=== PATIENT | male | born 1945 | race Caucasian/White ===

== ENCOUNTER 2018-02-04 12:56 | Emergency (ER) | payer MEDICARE, BC ==
[2018-02-04] MEDS: LIDOCAINE 1% MDV 20ML VIAL IM (16:20)
[2018-02-04] MEDS: ADACEL/BOOSTRIX VACCINE (DIPHTH/PERTUSS/ACELL/TETANUS)0.5ML SYR (90715) IM (16:21)
[2018-02-04] MEDS: cefTRIAXone SOD 1 GM in D5W MINI-BAG PLUS 50 ML IV (16:21)
== END 2018-02-04 18:00 | disposition home or self-care (01) ==
LOC: M ED 12:56
DX: S62.525B Nondisplaced fracture of distal phalanx of left thumb, initial encounter for open fracture (principal); W31.2XXA Contact with powered woodworking and forming machines, initial encounter; Y92.098 Other place in other non-institutional residence as the place of occurrence of the external cause; I10 Essential (primary) hypertension; E78.00 Pure hypercholesterolemia, unspecified; Z79.899 Other long term (current) drug therapy; Z79.82 Long term (current) use of aspirin
CPT/HCPCS: 90715

== ENCOUNTER → 2021-09-20 | Outpatient (REF) | payer MEDICARE ==
[~2021-09-20] MED LIST: ASPI81TA86 PO; KEFL500C17 PO; LOSA100T45; SIMV40TA20; VITA2000 PO; VITA500064 PO
[2021-09-20 18:16] LABS: VITAMIN B12 LEVEL > 2000 PG/ML (247-911)
== END ==
LOC: M LAB REF 16:15
PROVIDERS: ATTEND Nurse Practitioner Adult Health
DX: R41.3 Other amnesia (principal)

== ENCOUNTER → 2021-09-26 | Outpatient (CLI) | payer MEDICARE | LOC: M RAD 10:43 | PROVIDERS: ATTEND Nurse Practitioner Adult Health | DX: R59.1 Generalized enlarged lymph nodes (principal); M19.011 Primary osteoarthritis, right shoulder ==

== ENCOUNTER → 2021-09-26 | Outpatient (CLI) | payer MEDICARE | LOC: M WUC 12:22 | PROVIDERS: ATTEND Nurse Practitioner Adult Health | DX: M19.011 Primary osteoarthritis, right shoulder (principal) ==

== ENCOUNTER → 2021-10-19 | Outpatient (CLI) | payer MEDICARE ==
[~2021-10-19] MED LIST changes: +BIMA01SOL OU; +DULO30CA9 PO; +ELIQ5TAB PO; +HYDR12CA PO; +ICAPTAB PO; +LIDOCAINE 1% MDV 20ML VIAL As Ordered ONE; -LOSA100T45; +LOSA100T45 PO; +ROSU20TA5 PO; +VITA400T26 PO; +VITACAP31 PO; +[UNRECOGNIZED DRUG - OTHER] TOP
== END ==
LOC: M IRPRO 11:57
PROVIDERS: ATTEND Nurse Practitioner Adult Health
DX: L03.121 Acute lymphangitis of right axilla (principal)

== ENCOUNTER → 2022-10-18 | Outpatient (REF) | payer MEDICARE ==
[~2022-10-18] MED LIST changes: -LIDOCAINE 1% MDV 20ML VIAL As Ordered ONE; -LOSA100T45 PO; +LOSA100T46 PO; -ROSU20TA5 PO; +ROSU20TA61 PO; -VITA500064 PO; +VITA500065 PO
== END ==
LOC: M LAB REF 09:43
PROVIDERS: ATTEND Student in an Organized Health Care Education/Training Program
DX: R30.0 Dysuria (principal)

== ENCOUNTER → 2023-09-17 | Outpatient (CLI) | payer MEDICARE | LOC: M WUC 11:34 | PROVIDERS: ATTEND Nurse Practitioner Family | DX: R05.9 Cough, unspecified (principal); J06.9 Acute upper respiratory infection, unspecified ==

== ENCOUNTER 2023-09-21 12:45 | Emergency (ER) | payer MEDICARE ==
[~2023-09-21] VITALS: Ht 182.9 cm; Wt 111.8 kg
[2023-09-21] MEDS ORDERED: TAMS1CAP17 PO (12:58)
[2023-09-21] MEDS ORDERED: METO1TAB87 (12:58)
[2023-09-21 13:20] LABS: BASO % 0.2 % (0.0-1.0); EOS # 0.1 10^3/uL (0.0-0.5); EOS % 1.6 % (0.0-3.0); HEMATOCRIT 39.2 % (42.0-52.0); HEMOGLOBIN 13.5 g/dl (13.5-17.5); LYMPH # 1.7 10^3/uL (1.5-5.0); LYMPH % 20.7 % (24.0-44.0); MEAN CORPUSCULAR HEMOGLOBIN 32.8 pg (27.0-33.0); MEAN CORPUSCULAR HGB CONC 34.4 g/dl (32.0-36.5); MEAN CORPUSCULAR VOLUME 95.4 fl (80.0-96.0); MONO % 12.2 % (2.0-8.0); NEUTROPHILS # 5.4 10^3/uL (1.5-8.5); NEUTROPHILS % 65.1 % (36.0-66.0); PLATELET COUNT, AUTOMATED 231 10^3/uL (150-450); RED BLOOD COUNT 4.11 10^6/uL (4.30-6.10); WHITE BLOOD COUNT 8.4 10^3/uL (4.0-10.0)
[2023-09-21] MEDS: NS 1,000 ML IV SCH (13:40)
[2023-09-21 13:42] LABS: INR 1.25; PARTIAL THROMBOPLASTIN TIME 32.6 SECONDS (24.8-34.2); PROTHROMBIN TIME 15.3 SECONDS (12.5-14.5)
[2023-09-21 13:49] LABS: CK-MB VALUE MASS 3.8 NG/ML (<3.6)
[2023-09-21 13:50] LABS: C REACTIVE PROTEIN QUANTITATIV < 0.40 MG/DL (<1.0)
[2023-09-21 13:52] LABS: ALBUMIN 3.3 G/DL (3.2-5.2); ALKALINE PHOSPHATASE 61 U/L (46-116); ALT/SGPT 37 U/L (7.0-40); AST/SGOT 37 U/L (<34); BILIRUBIN,DIRECT 0.2 MG/DL (<0.4); BILIRUBIN,TOTAL 0.6 MG/DL (0.3-1.2); BLOOD UREA NITROGEN 28 MG/DL (9-23); CALCIUM LEVEL 8.6 MG/DL (8.3-10.6); CARBON DIOXIDE LEVEL 33 MMOL/L (20-31); CHLORIDE LEVEL 106 MMOL/L (98-107); CREATININE FOR GFR 0.94 MG/DL (0.70-1.30); GLOMERULAR FILTRATION RATE > 60.0 (>42); GLUCOSE, FASTING 134 MG/DL (74-106); POTASSIUM SERUM 3.6 MMOL/L (3.5-5.1); SODIUM LEVEL 143 MMOL/L (136-145); TOTAL PROTEIN 6.2 G/DL (5.7-8.2)
[2023-09-21 13:53] LABS: FREE T4 1.07 NG/DL (0.89-1.76)
[2023-09-21 13:54] LABS: THYROID STIMULATING HORMONE 0.767 uIU/ML (0.55-4.78)
[2023-09-21 13:58] LABS: PROCALCITONIN 0.04 ng/ml
[2023-09-21 14:03] LABS: CPK CREATINE PHOSPHOKINASE 478 U/L (46-171); MB/CK RELATIVE INDEX 0.79 (< OR =4)
[2023-09-21 14:53] LABS: CK-MB VALUE MASS 4.4 NG/ML (<3.6)
[2023-09-21 14:55] LABS: MB/CK RELATIVE INDEX 1.04 (< OR =4)
[2023-09-21 15:14] VITALS: BP 154/68; TEMP 98.1; O2SAT 98
== END 2023-09-21 15:18 | disposition short-term general hospital (02) ==
LOC: EDBD 12:45 → M ED 12:45
DX: I44.39 Other atrioventricular block (principal); I48.91 Unspecified atrial fibrillation; F10.10 Alcohol abuse, uncomplicated; R00.1 Bradycardia, unspecified; I25.2 Old myocardial infarction; I45.10 Unspecified right bundle-branch block; Z79.1 Long term (current) use of non-steroidal anti-inflammatories (NSAID); Z79.899 Other long term (current) drug therapy

== ENCOUNTER → 2023-11-15 | Outpatient (REF) | payer MEDICARE ==
[~2023-11-15] MED LIST changes: +METO1TAB87; +TAMS1CAP17 PO
== END ==
LOC: M SFHCDERM 16:33
PROVIDERS: ATTEND Nurse Practitioner Family
DX: C44.329 Squamous cell carcinoma of skin of other parts of face (principal)

== ENCOUNTER → 2024-09-30 | Outpatient (REF) | payer MEDICARE ==
[~2024-09-30] MED LIST changes: +HYDR12.510 PO; -HYDR12CA PO; -ROSU20TA61 PO; +ROSU20TA86 PO
== END ==
LOC: M SFHCDERM 08:33
PROVIDERS: ATTEND Dermatology
DX: D48.5 Neoplasm of uncertain behavior of skin (principal)

== ENCOUNTER → 2024-10-12 | Outpatient (REF) | payer MEDICARE ==
[~2024-10-12] MED LIST changes: -HYDR12.510 PO; +HYDR12CA PO
== END ==
LOC: M SFHCDERM 16:33
PROVIDERS: ATTEND Dermatology
DX: Z48.02 Encounter for removal of sutures (principal)

== ENCOUNTER → 2024-11-03 | Outpatient (REF) | payer MEDICARE ==
[~2024-11-03] MED LIST changes: +HYDR12.510 PO; -HYDR12CA PO
[2024-11-03 19:00] LABS: BASO # 0.0 10^3/uL (0.0-0.2); BASO % 0.3 % (0.0-1.0); CALCIUM LEVEL 8.9 MG/DL (8.3-10.6); CARBON DIOXIDE LEVEL 30.0 MMOL/L (20-31); CHLORIDE LEVEL 101.0 MMOL/L (98-107); CHOLESTEROL LEVEL 133.0 MG/DL (<200); CHOLESTEROL RISK RATIO 3.62 (<5); CREATININE FOR GFR 0.96 MG/DL (0.70-1.30); EOS # 0.2 10^3/uL (0.0-0.5); EOS % 3.6 % (0.0-3.0); GLOMERULAR FILTRATION RATE 80.4 (>42); LDL CHOLESTEROL 64.1 MG/DL (<100); LYMPH # 1.1 10^3/uL (1.5-5.0); LYMPH % 17.3 % (24.0-44.0); MONO # 0.8 10^3/uL (0.0-0.8); MONO % 11.4 % (2.0-8.0); NEUTROPHILS # 4.4 10^3/uL (1.5-8.5); NEUTROPHILS % 67.2 % (36.0-66.0); NON-HDL-C 96.3 MG/DL; PLATELET COUNT, AUTOMATED 226 10^3/uL (150-450); POTASSIUM SERUM 4.1 MMOL/L (3.5-5.1); SODIUM LEVEL 142.0 MMOL/L (136-145); TRIGLYCERIDES LEVEL 161.0 MG/DL (<150)
== END ==
LOC: M LABDRWAD 17:43
PROVIDERS: ATTEND Student in an Organized Health Care Education/Training Program
DX: I10 Essential (primary) hypertension (principal); E78.5 Hyperlipidemia, unspecified

== ENCOUNTER → 2024-12-01 | Outpatient (CLI) | payer MEDICARE ==
[2024-12-01 14:28] LABS: BASO # 0.0 10^3/uL (0.0-0.2); BASO % 0.4 % (0.0-1.0); EOS # 0.2 10^3/uL (0.0-0.5); EOS % 2.4 % (0.0-3.0); LYMPH # 1.9 10^3/uL (1.5-5.0); LYMPH % 26.1 % (24.0-44.0); MONO # 0.9 10^3/uL (0.0-0.8); MONO % 12.2 % (2.0-8.0); NEUTROPHILS # 4.3 10^3/uL (1.5-8.5); NEUTROPHILS % 58.6 % (36.0-66.0); PLATELET COUNT, AUTOMATED 192 10^3/uL (150-450)
[2024-12-01 14:32] LABS: INR 1.12
[2024-12-01 14:54] LABS: CALCIUM LEVEL 9.4 MG/DL (8.3-10.6); CARBON DIOXIDE LEVEL 34.0 MMOL/L (20-31); CHLORIDE LEVEL 100.0 MMOL/L (98-107); CREATININE FOR GFR 0.85 MG/DL (0.70-1.30); GLOMERULAR FILTRATION RATE 88.4 (>42); POTASSIUM SERUM 4.1 MMOL/L (3.5-5.1); SODIUM LEVEL 143.0 MMOL/L (136-145)
== END ==
LOC: M WUC 12:45
DX: E78.5 Hyperlipidemia, unspecified (principal); I10 Essential (primary) hypertension; I25.10 Atherosclerotic heart disease of native coronary artery without angina pectoris